=== PATIENT | male | born 1965 | race Caucasian/White ===

== ENCOUNTER 2017-03-14 10:53 | Emergency (ER) | payer MEDICAID, OTHER ==
[~2017-03-14] VITALS: Ht 177.8 cm; Wt 88.5 kg
[2017-03-14 11:05] VITALS: BP 144/101
[2017-03-14] MEDS ORDERED: DEXAMETHASONE SOD PHOS 4 MG/1ML SDV INJ IM ONE (12:30)
[2017-03-14] MEDS ORDERED: TRIAMCINOLONE 40MG/ML 1ML VIAL IX ONE (12:30)
[2017-03-14] MEDS ORDERED: LIDOCAINE 1% HCL (LOCAL ANESTH.) INJ 20ML MDV IN ONE (12:30)
[2017-03-14] MEDS ORDERED: HYDROcodone-ACET 10/325MG TAB PO ONE (12:45)
== END 2017-03-14 14:16 | disposition home or self-care (01) ==
LOC: ER 10:53
DX: M77.31 Calcaneal spur, right foot (principal); M25.562 Pain in left knee; M25.522 Pain in left elbow; M54.9 Dorsalgia, unspecified; F17.200 Nicotine dependence, unspecified, uncomplicated
CPT/HCPCS: 73630; 99284; J1100; J2001; J3301

== ENCOUNTER 2017-03-25 19:13 | Emergency (ER) | payer MEDICAID ==
[~2017-03-25] VITALS: Ht 175.3 cm; Wt 83.9 kg
[2017-03-25 21:45] VITALS: BP 128/92
== END 2017-03-26 00:38 | disposition home or self-care (01) ==
LOC: ER 19:21
DX: S16.1XXA Strain of muscle, fascia and tendon at neck level, initial encounter (principal); E07.89 Other specified disorders of thyroid; E78.5 Hyperlipidemia, unspecified; W19.XXXA Unspecified fall, initial encounter; Y93.9 Activity, unspecified; Y99.8 Other external cause status; Y92.89 Other specified places as the place of occurrence of the external cause
CPT/HCPCS: 72040; 72125

== ENCOUNTER 2017-04-15 15:00 | Emergency (ER) | payer MEDICAID ==
[~2017-04-15] VITALS: Ht 177.8 cm; Wt 83.9 kg
[2017-04-15 15:47] VITALS: BP 146/74
[2017-04-15] MEDS ORDERED: FLUORESCEIN SOD 1 MG TEST STRIP OP ONE (16:30)
[2017-04-15] MEDS ORDERED: TETRACAINE HCL 0.5% OPTH(EYE) SOLN 4ML EACHEYE ONE (16:30)
== END 2017-04-15 16:48 | disposition home or self-care (01) ==
LOC: ER 15:09
DX: S05.02XA Injury of conjunctiva and corneal abrasion without foreign body, left eye, initial encounter (principal); E07.89 Other specified disorders of thyroid; E78.5 Hyperlipidemia, unspecified; F17.210 Nicotine dependence, cigarettes, uncomplicated; W45.8XXA Other foreign body or object entering through skin, initial encounter; Y93.89 Activity, other specified; Y99.8 Other external cause status; Y92.89 Other specified places as the place of occurrence of the external cause

== ENCOUNTER 2017-09-05 19:04 | Emergency (ER) | payer MEDICAID ==
[~2017-09-05] VITALS: Ht 177.8 cm; Wt 86.2 kg
[2017-09-05 20:27] LABS: Basophils # (auto) 0.1 uL; Basophils % (auto) 0.8 % (0.0-2.0); Eosinophils # (auto) 0.1 uL; Eosinophils % (auto) 0.4 % (0.0-7.0); Hematocrit 44.6 % (41.0-53.0); Hemoglobin 15.3 g/dL (13.5-17.5); Lymphocytes # (auto) 2.1 uL; Lymphocytes % (auto) 13.9 % (10.0-50.0); Mean Corpuscular Hemoglobin 30.6 pg (28.0-32.0); Mean Corpuscular Hgb Conc. 34.2 g/dL (32.0-36.0); Mean Corpuscular Volume 89.6 fL (80.0-100.0); Monocytes # (auto) 1.4 uL; Neutrophils # (auto) 11.6 uL; Neutrophils % (auto) 75.9 % (37.0-80.0); Platelet Count (auto) 364 10^3/uL (140-450); Red Blood Cells 4.98 10^6/uL (4.5-5.90); Red Cell Distribution Width 13.7 % (11.8-14.3); White Blood Cell 15.2 10^3/uL (4.4-10.8)
[2017-09-05 20:44] LABS: Albumin 3.9 g/dL (3.4-5.0); BUN/Creatinine Ratio 10.8; Calcium 8.7 mg/dL (8.5-10.1); Potassium 3.9 mmol/L (3.5-5.1)
[2017-09-05 20:47] LABS: Bilirubin, Total 0.5 mg/dL (0.2-1.0)
[2017-09-06] MEDS ORDERED: CLINDAMYCIN 600 MG/4 ML VL IM ONE (00:15)
[2017-09-06] MEDS ORDERED: IBUPROFEN 600 MG TAB PO ONE (00:15)
[2017-09-06 00:41] VITALS: BP 128/68
== END 2017-09-06 00:25 | disposition home or self-care (01) ==
LOC: ER 19:11
DX: L03.113 Cellulitis of right upper limb (principal); E78.5 Hyperlipidemia, unspecified; E07.9 Disorder of thyroid, unspecified; F17.210 Nicotine dependence, cigarettes, uncomplicated
CPT/HCPCS: 36415; 80053; 85025; 87040; 96372